=== PATIENT | female | born 1990 | race Caucasian/White ===

== ENCOUNTER 2023-06-27 20:37 | Emergency (ER) | payer OTHER ==
[2023-06-27 20:44] VITALS: RESP 18; BMI 34.3
[2023-06-27 21:17] LABS: EPI CELLS >36 /uL (0-25.1); HYALINE CASTS 1 /uL (0-3.1); PH,URINE 5.5 (5.0-8.0); URINE APPEARANCE CLEAR; URINE BACTERIA 824 /uL (0-1359); URINE BILIRUBIN NEGATIVE (NEGATIVE); URINE COLOR DK YELLOW; URINE GLUCOSE (UA) NEGATIVE (NEGATIVE); URINE KETONE TRACE (NEGATIVE); URINE LEUK ESTERASE 1+ (NEGATIVE); URINE NITRITE NEGATIVE (NEGATIVE); URINE PROTEIN NEGATIVE (NEGATIVE); URINE RBC 14 /uL (0-23.9); URINE UROBILINOGEN 0.2 mg/dL (0.2-1.0); URINE WBC 78 /uL (0-25.8)
[2023-06-27 21:19] LABS: HCG,QUALITATIVE URINE Negative
[2023-06-27] MEDS ORDERED: MAG HYDROX/AL HYDROX/SIMETH 30 ML UNIT-DOSE CUP PO ONE (21:25)
[2023-06-27] MEDS ORDERED: FAMOTIDINE 20 MG/50 ML IVPB 20 MG/50 ML MG IVPB ONE ×2 (21:25→22:36)
[2023-06-27] MEDS ORDERED: ACETAMINOPHEN 1000 MG/100 ML BAG IVPB ONE (21:26)
[2023-06-27] MEDS ORDERED: ONDANSETRON 4 MG/2 ML VIAL IVPUSH ONE (21:33)
[2023-06-27 22:17] LABS: BASO % 0.7 % (0-2.0); EOS % 3.2 % (0-4.5); HEMATOCRIT 39.2 % (32.4-45.2); HEMOGLOBIN 12.9 GM/dL (10.7-15.3); LYMPH % 37.9 % (8-40); MCH 24.5 pg (25.7-33.7); MCHC 32.8 g/dl (32.0-36.0); MEAN CELL VOLUME 74.7 fl (80-96); MEAN PLT VOLUME 9.8 fl (7.5-11.1); MONO % 5.8 % (3.8-10.2); NEUT % 52.4 % (42.8-82.8); PLATELET COUNT 147 10^3/uL (134-434); RBC 5.25 M/mm3 (3.60-5.2); RDW 15.1 % (11.6-15.6); WHITE BLOOD COUNT 7.2 K/mm3 (4.0-10.0)
[2023-06-27 22:23] LABS: INR 1.02 (0.83-1.09); PROTHROMBIN TIME (PATIENT) 11.8 SEC (9.7-13.0)
[2023-06-27 22:26] LABS: ACTIVATED PTT 27.5 SECONDS (25.2-36.5)
[2023-06-27] MEDS ORDERED: ONDANSETRON 4 MG/2 ML VIAL ONE (22:36)
[2023-06-27] MEDS ORDERED: MAG HYDROX/AL HYDROX/SIMETH 30 ML UNIT-DOSE CUP ONE (22:36)
[2023-06-27] MEDS ORDERED: ACETAMINOPHEN INJECTION 100 ML IVPB ONE (22:36)
[2023-06-27 23:00] LABS: CHLORIDE 109 mmol/L (98-107); SODIUM 134 mmol/L (136-145)
[2023-06-27] MEDS ORDERED: CEFTRIAXONE 1 GM in DEXTROSE 5%-WATER - 50 ML IVPB ONE (23:01)
[2023-06-27 23:02] LABS: CALCIUM 8.9 mg/dL (8.5-10.1)
[2023-06-27 23:03] LABS: ALBUMIN 3.4 g/dl (3.4-5.0); BLOOD UREA NITROGEN 13.4 mg/dL (7-18); CO2 24 mmol/L (21-32); GLUCOSE,RANDOM 87 mg/dL (74-106); MAGNESIUM 2.4 mg/dL (1.8-2.4)
[2023-06-27 23:06] LABS: CREATININE 0.9 mg/dL (0.55-1.3); PHOSPHOROUS 4.6 mg/dL (2.5-4.9); SGOT/AST 82 U/L (15-37)
[2023-06-27 23:07] LABS: BILIRUBIN,TOTAL 0.4 mg/dL (0.2-1)
[2023-06-27 23:08] LABS: TOT PROT 7.6 g/dl (6.4-8.2)
[2023-06-27 23:09] LABS: ALK PHOS 77 U/L (45-117); ANION GAP 1 mmol/L (4-13); POTASSIUM 7.5 mmol/L (3.5-5.1); SGPT/ALT 37 U/L (13-61)
[2023-06-27] MEDS ORDERED: SIMETHICONE 80 MG TAB.CHEW (FP) PO ONE (23:20)
[2023-06-28 00:11] LABS: EOS % 3.3 % (0-4.5); HEMATOCRIT 38.1 % (32.4-45.2); HEMOGLOBIN 12.3 GM/dL (10.7-15.3); LYMPH % 42.6 % (8-40); MCH 24.5 pg (25.7-33.7); MCHC 32.3 g/dl (32.0-36.0); MEAN CELL VOLUME 75.7 fl (80-96); MEAN PLT VOLUME 9.2 fl (7.5-11.1); MONO % 4.9 % (3.8-10.2); NEUT % 48.2 % (42.8-82.8); PLATELET COUNT 138 10^3/uL (134-434); RBC 5.03 M/mm3 (3.60-5.2); WHITE BLOOD COUNT 6.5 K/mm3 (4.0-10.0)
[2023-06-28 00:33] LABS: POTASSIUM 3.9 mmol/L (3.5-5.1)
[2023-06-28 00:36] LABS: CALCIUM 8.4 mg/dL (8.5-10.1)
[2023-06-28 00:37] LABS: ALBUMIN 3.3 g/dl (3.4-5.0)
[2023-06-28 00:40] LABS: CREATININE 0.7 mg/dL (0.55-1.3)
[2023-06-28 00:41] LABS: BILIRUBIN,TOTAL 0.3 mg/dL (0.2-1); TOT PROT 6.7 g/dl (6.4-8.2)
[2023-06-28 01:20] VITALS: BP 103/60; PULSE 84; TEMP 97.8
== END 2023-06-28 02:46 | disposition home or self-care (01) ==
LOC: JER 20:37
DX: R10.32 Left lower quadrant pain (principal); R11.0 Nausea; R10.13 Epigastric pain
CPT/HCPCS: 36415; 74177-TC; 80053; 81003; 83735; 84100; 84703; 85025; 85610; 85730; 86850; 86900; 86901; 93005; 93010; 99285-25; Q9967